=== PATIENT | female | born 1955 | race Caucasian/White ===

== ENCOUNTER 2025-07-02 10:18 | Outpatient (CLI) | payer MEDICARE, BC | END 2025-07-02 10:19 | disposition home or self-care (01) | LOC: CSHULT 10:18 | PROVIDERS: ATTEND Internal Medicine Hematology & Oncology | DX: I82.532 Chronic embolism and thrombosis of left popliteal vein (principal); I82.542 Chronic embolism and thrombosis of left tibial vein; I82.552 Chronic embolism and thrombosis of left peroneal vein; I82.551 Chronic embolism and thrombosis of right peroneal vein; D50.0 Iron deficiency anemia secondary to blood loss (chronic); D63.8 Anemia in other chronic diseases classified elsewhere; C52 Malignant neoplasm of vagina | CPT/HCPCS: 93970 ==